=== PATIENT | female | born 1980 | race Caucasian/White ===

== ENCOUNTER 2016-10-25 15:53 | Emergency (ER) | payer BC ==
[~2016-10-25] VITALS: Ht 154.9 cm; Wt 56.7 kg
[2016-10-25 17:35] LABS: BASOPHIL% 0.4 % (0-2.5); EOSINOPHIL# 0.1 X10e3 (0-0.7); EOSINOPHIL% 1.7 % (0.0-7.0); HEMATOCRIT 33.6 % (35.0-45.0); HEMOGLOBIN 11.2 gm/dL (12.0-16.0); LYMPHOCYTE# 1.6 X10e3 (1.0-3.5); MEAN CORPUSCULAR HEMOGLOBIN 25.7 PG (28-34); MEAN CORPUSCULAR HGB CONC 33.3 g/dL (30-36); MONOCYTE# 0.4 X10e3 (0-1.0); MONOCYTE% 7.3 % (3.0-12.0); NEUTROPHIL# 3.5 X10e3 (1.5-7.1); NEUTROPHIL% 62.6 % (40-75); PLATELET COUNT 192 X10e3 (140-420); RED BLOOD COUNT 4.36 X10e (3.90-5.30); RED CELL DISTRIBUTION WIDTH 15.2 % (11.0-15.5); WHITE BLOOD COUNT 5.5 X10e3 (4.0-10.5)
[2016-10-25 17:38] LABS: DIFF IND NO
[2016-10-25 17:58] LABS: URINE APPEARANCE CLEAR; URINE BILIRUBIN NEG (NEG); URINE BLOOD TRACE-LYSED (NEG); URINE COLOR YELLOW; URINE GLUCOSE NEG (NORM); URINE KETONE NEG (NEG); URINE LEUKOCYTE ESTERASE NEG (NEG); URINE NITRATE NEG (NEG); URINE PROTEIN NEG (NEG); URINE SPECIFIC GRAVITY 1.015 (1.003-1.035)
[2016-10-25 18:00] LABS: MICRO INDICATED? YES; URINE SOURCE CLEAN CATCH
[2016-10-25 18:02] LABS: ALBUMIN SERUM 4.3 g/dL (3.5-5.0); BILIRUBIN, DIRECT 0.1 mg/dL (0.0-0.2); BILIRUBIN,INDIRECT 0.5 mg/dL (0.0-0.9); BILIRUBIN,TOTAL 0.6 mg/dL (0.2-2.0); BUN/CREATININE RATIO 18.57; CALCIUM SERUM 8.7 mg/dL (8.4-10.2); CREATININE SERUM 0.7 mg/dL (0.6-1.4); GLOM FILT RATE Estimated 112.3 mL/min (>60); POTASSIUM 3.7 mmol/L (3.5-5.1); PROTEIN TOTAL SERUM 7.5 g/dL (6.0-8.3)
[2016-10-25 18:04] LABS: URINE BACTERIA NEG (NEG); URINE RBC 0-2 /[HPF] (0-2); URINE SQUAMOUS EPITHELIAL CELL FEW /[HPF]; URINE WBC 0-2 /[HPF] (0-5)
== END 2016-10-25 18:46 | disposition home or self-care (01) ==
LOC: SED 15:53 → CED 15:53 → SED 17:27
PROVIDERS: Physician Assistant Medical
DX: R10.11 Right upper quadrant pain (principal); R11.0 Nausea; R19.7 Diarrhea, unspecified; Z88.1 Allergy status to other antibiotic agents; Z88.2 Allergy status to sulfonamides
CPT/HCPCS: 36415; 80048; 80076; 81003; 82150; 83690; 84703; 85025; 96361; 96374; 96375; 99284; J2405

== ENCOUNTER → 2016-10-30 | Outpatient (CLI) | payer BC ==
--- NOTE | ~2016-10-30 | US6 ---
[facility] A Service of [facility] RADIOLOGY TEXT RESULTS PATIENT: EVELYN WOOD LOCATION: [facility] : [birth year] UNIT #: [id number] AGE: [address]: Jason Osborne MD SEX: F ORDER DR: [id number] [facility]. [place], [place] [address] [id number] O MR#: [id number] Acc #: [id number] NAME: EVELYN WOOD : 1980 SEX: F STUDY DATE/TIME: 10/30/2016 10:39 UNIT: [facility] ROOM: STUDY DESCRIPTION: US Abdominal Limited Attending Physician: Jason Osborne M.D. Referring Physician: Jason Osborne M.D. Ordering Physician: Jason Osborne M.D. Primary Care Physician: Jason Osborne M.D. MEDICAL IMAGING REPORT This report is preliminary unless electronic signature is present EXAM Right upper quadrant ultrasound INDICATION Pain since Wednesday. Pain on the right that moves to the epigastrium. TECHNIQUE Aparicio-scale and color Doppler sonographic images were obtained through the right upper quadrant. FINDINGS Limited images of the pancreas appear unremarkable. No definite focal hepatic lesions are seen. Main portal vein is made with hepatopetal flow. Liver may be mildly steatotic. Right kidney is normal in appearance. No solid or cystic renal masses are seen and no hydronephrosis is identified. Gallbladder is normal. No stones or sludge are seen within the gallbladder and there is no gallbladder wall thickening or pericholecystic fluid. IMPRESSION Questionable mild hepatic steatosis otherwise unremarkable exam. Dictated by... Amy Nix M.D. THIS IS AN ELECTRONICALLY VERIFIED REPORT Amy Nix M.D. at 11/11/2016 8:21 AM AFF/rnr TD: 10/31/2016 03:14 JOB #: [id number] MEDICAL IMAGING REPORT [facility] A Service of [facility] RADIOLOGY TEXT RESULTS PATIENT: EVELYN WOOD LOCATION: [facility] : [birth year] UNIT #: [id number] AGE: [address]: Jason Osborne MD SEX: F ORDER DR: Page 1 of 1 COPY
== END | disposition home or self-care (01) ==
LOC: CGUS 10:10
DX: R10.11 Right upper quadrant pain (principal); D50.9 Iron deficiency anemia, unspecified; R93.2 Abnormal findings on diagnostic imaging of liver and biliary tract
CPT/HCPCS: 76705